=== PATIENT | female | born 1995 | race Caucasian/White ===

== ENCOUNTER 2021-01-03 08:16 | Emergency (ER) | payer OTHER ==
[2021-01-03] MEDS ORDERED: Ibuprofen 200 MG TAB ONE (09:22)
[2021-01-03] MEDS ORDERED: HYDROcodone/Acetaminophen 5/325 mg Tablet ONE (09:22)
== END 2021-01-03 09:40 | disposition home or self-care (01) ==
LOC: BURERS 08:16
DX: S16.1XXA Strain of muscle, fascia and tendon at neck level, initial encounter (principal); Q79.60 Ehlers-Danlos syndrome, unspecified; F17.290 Nicotine dependence, other tobacco product, uncomplicated; V49.3XXA Car occupant (driver) (passenger) injured in unspecified nontraffic accident, initial encounter; Y92.410 Unspecified street and highway as the place of occurrence of the external cause; Y99.0 Civilian activity done for income or pay
CPT/HCPCS: 72125